=== PATIENT | male | born 1965 | race Caucasian/White ===

== ENCOUNTER 2018-12-20 16:51 | Emergency (ER) | payer OTHER ==
[2018-12-20 17:02] VITALS: BP 144/74
--- NOTE | 2018-12-20 18:12 | XRAY Report ---
Reason: dropped palate on R 1st toe. Procedure Date: 12/20/2018 Accession Number: [id number] / [id number] Procedure: XR - Toe(s) RT CPT Code: FULL RESULT: EXAM: RIGHT FIRST TOE RADIOGRAPHY EXAM DATE: 12/20/2018 05:49 PM. CLINICAL HISTORY: Dropped palate on R 1st toe. COMPARISON: None. TECHNIQUE: 3 views. FINDINGS: Bones: Probable nondisplaced fracture along the lateral aspect of the base of the distal phalanx of the great toe. No evidence of intra-articular extension. Joints: No subluxations. Mild degenerative changes at the first metatarsophalangeal joint. Soft Tissues: Normal. No soft tissue swelling. IMPRESSION: Probable nondisplaced fracture along the lateral aspect of the base of the distal pharynx of the great toe. RADIA
--- NOTE | 2018-12-20 18:59 | ED Physician Documentation ---
PD HPI LOWER EXT INJURY - Stated complaint Stated Complaint: TOE PX - Chief complaint Chief Complaint: Ext Problem - History obtained from History obtained from: Patient - History of Present Illness PD HPI LOW EXT INJURY LOCATION: Right, Toe Type of injury: Blunt / blow Timing - onset: How many days ago (2) Worsened by: Palpating, Other (Weightbearing.) Associated symptoms: Swelling, Discolored Similar symptoms before: Has not had sx before - Additional information Additional information: The patient is a 53-year-old male who stubbed his right great toe on a pallet 2 days ago. He presents now because of persistent pain and ecchymosis of the toe. His pain is worse with weightbearing. He denies any other injuries. Review of Systems Constitutional: denies: Fever Musculoskeletal: reports: Extremity pain (Right great toe.) Neurologic: denies: Focal weakness, Numbness PD PAST MEDICAL HISTORY - Past Medical History Past Medical History: Yes Cardiovascular: None Respiratory: None Neuro: None Endocrine/Autoimmune: None GI: None : None HEENT: Chronic vision loss Psych: None Musculoskeletal: None Derm: None - Past Surgical History Past Surgical History: Yes Ortho: Other - Allergies Allergies/Adverse Reactions: Allergies Allergy/AdvReac Type Severity Reaction Status Date / Time No Known Drug Allergies Allergy Verified 12/20/18 17:02 - Social History Does the pt smoke?: No Does the pt drink ETOH?: Yes ETOH Use: Wine Does the pt have substance abuse?: No - Immunizations Immunizations are current?: Yes - POLST Patient has POLST: No PD ED PE NORMAL - Vitals Vital signs reviewed: Yes (borderline systolic hypertension initially.) - General General: Alert and oriented X 3, Well developed/nourished - HEENT HEENT: Atraumatic - Respiratory Respiratory: No respiratory distress - Derm Derm: No rash - Extremities Extremities: No edema, No calf tenderness / cord, Other (There is swelling of the right great toe, with ecchymosis, and tenderness to palpation of the toe, particularly at the base of the distal phalanx. Distal neurovascular is intact. Integument is intact.) - Neuro Neuro: Alert and oriented X 3, No motor deficit, No sensory deficit Results - Vitals Vitals: Oxygen O2 Source Room air - Rads (name of study) Right great toe Radiology: Prelim report reviewed, EMP read contemporaneously, See rad report (Probable nondisplaced fracture along the lateral aspect of the base of the distal phalanx of the great toe.) PD MEDICAL DECISION MAKING - ED course Complexity details: reviewed results, considered differential, d/w patient ED course: The patient's presentation is most consistent with a nondisplaced small fracture at the lateral base of the distal phalanx of the right great toe, as seen on radiographic imaging. I discussed with him the expected course of injury, symptomatic treatment, as well as potentially worrisome signs or symptoms that should prompt reevaluation. Departure - Departure Disposition: 01 Home, Self Care Clinical Impression: Fracture of toe of right foot Qualifiers: Encounter type: initial encounter Toe: great toe Fracture type: closed Phalanx: distal Fracture alignment: nondisplaced Qualified Code(s): S92.424A - Nondisplaced fracture of distal phalanx of right great toe, initial encounter for closed fracture Condition: Stable Instructions: ED Fx Toe Closed Follow-Up: MARIEL Peterson [Provider Group] Comments: Keep your right foot elevated as much of the time as possible. Apply ice pack intermittently for the next few days. You can use Tylenol as needed for discomfort. Let pain be your guide to activity level. Follow-up with your primary physician within 2 weeks. Call to schedule an appointment. Return to the emergency department if you develop markedly increasing pain or swelling, or otherwise worsening symptoms. Discharge Date/Time: 12/20/18 19:20
== END 2018-12-20 19:20 | disposition home or self-care (01) ==
LOC: ED 16:51
DX: S92.424A Nondisplaced fracture of distal phalanx of right great toe, initial encounter for closed fracture (principal); W22.8XXA Striking against or struck by other objects, initial encounter
CPT/HCPCS: 73660; 99282; 99283

== ENCOUNTER 2022-06-10 12:02 | Emergency (ER) | payer OTHER ==
[2022-06-10 12:33] LABS: BASOPHILS # (AUTO) 0.1 10^3/uL (0.0-0.1); BASOPHILS % (AUTO) 0.8 %; EOSINOPHILS # (AUTO) 0.2 10^3/uL (0.0-0.7); EOSINOPHILS % (AUTO) 2.5 %; HCT - HEMATOCRIT 44.4 % (42.0-52.0); HGB - HEMOGLOBIN 14.7 g/dL (14.0-18.0); LYMPHOCYTES # (AUTO) 2.5 10^3/uL (1.5-3.5); LYMPHOCYTES % (AUTO) 31.1 %; MEAN CORPUSCULAR HEMOGLOBIN 32.2 pg (27.0-31.0); MEAN CORPUSCULAR HGB CONC 33.1 g/dL (32.0-36.0); MEAN CORPUSCULAR VOLUME 97.2 fL (80.0-94.0); MEAN PLATELET VOLUME 9.2 fL (7.4-11.4); MONOCYTES # (AUTO) 1.1 10^3/uL (0.0-1.0); MONOCYTES % (AUTO) 14.4 %; NEUTROPHILS % (AUTO) 50.9 %; PLT - PLATELET COUNT 378 10^3/uL (130-450); RED BLOOD COUNT 4.57 10^6/uL (4.70-6.10); RED CELL DISTRIBUTION WIDTH 12.5 % (12.0-15.0); WHITE BLOOD COUNT 7.9 x10^3/uL (4.8-10.8)
[2022-06-10 12:49] LABS: ALBUMIN 4.2 g/dL (3.2-5.5); ALBUMIN/GLOBULIN RATIO 1.1 (1.0-2.2); BILIRUBIN,TOTAL 0.4 mg/dL (0.2-1.0); CALCIUM 8.7 mg/dL (8.5-10.3); CREATININE 0.9 mg/dL (0.6-1.2)
--- NOTE | 2022-06-10 12:56 | XRAY Report ---
PROCEDURE: Chest 1 View X-Ray INDICATIONS: Chest pain TECHNIQUE: One view of the chest was acquired. COMPARISON: None. FINDINGS: Surgical changes and devices: None. Lungs and pleura: No pleural effusions or pneumothorax. Lungs are clear. Mediastinum: Mediastinal contours appear normal. Heart size is normal. Bones and chest wall: No suspicious bony lesions. Overlying soft tissues appear unremarkable. IMPRESSION: No acute radiographic abnormality. Reviewed by: Martin Mckeon MD on 06/10/2022 12:54 PM PDT Approved by: Martin Mckeon MD on 06/10/2022 12:54 PM PDT Station ID: [id number]
[2022-06-10] MEDS ORDERED: POTASSIUM CHLORIDE 20 MEQ TABLET PO STA (13:39)
--- NOTE | 2022-06-10 13:42 | ED Physician Documentation ---
History of Present Illness - Stated complaint Stated Complaint: Palpitations - Chief complaint Chief Complaint: Cardiac - History obtained from History obtained from: Patient - Additonal information Additional information: The patient comes to the emergency department chief complaint of palpitations on and off for the last 5 months and lightheadedness for the last 2 months. He states that he has already been following up with his primary doctor about this, has had a Holter monitor screening which has not had final results released yet, and is in the process of being referred to cardiology. He states the main reason he is here is because his smart watch told him he was in A-fib and he wants to make sure of whether or not that is actually the case. He states he gets a dull ache in his chest when he feels the palpitations, but that his heart rate usually is still less than 100. Sometimes, his watch tells him that he is in A-fib when it happens and that concerns him. The patient states he had COVID back in February and ever since then, has had persistent lightheadedness. He states is not really related to the episodes of palpitations but that he does notice it when he goes to stand up. Patient states he drinks plenty of water. Subsequent to the development of dizziness and palpitations, he was started on an antihypertensive, but states that has not changed his symptoms for the better or the worse. The patient has no prior diagnosis of any cardiac issues, including A-fib. No other complaints at this time. He states he is only fainted once, after a coughing spell. Usually just stands up for a while and lots the dizziness pass and then he is able to be up and around. PD PAST MEDICAL HISTORY - Past Medical History Cardiovascular: None Respiratory: None Neuro: None Endocrine/Autoimmune: None GI: None : None HEENT: Chronic vision loss Psych: None Musculoskeletal: None Derm: None - Past Surgical History Past Surgical History: Yes Ortho: Other - Present Medications Home Medications: Ambulatory Orders Medication Instructions Recorded Confirmed Potassium Chloride [K-Dur] 20 meq PO BIDWM #14 tablet 06/10/22 - Allergies Allergies/Adverse Reactions: Allergies Allergy/AdvReac Type Severity Reaction Status Date / Time No Known Drug Allergies Allergy Verified 06/10/22 12:13 - Social History Does the pt smoke?: No Does the pt drink ETOH?: Yes Does the pt have substance abuse?: No - Immunizations Immunizations are current?: Yes - POLST Patient has POLST: No PD ED PE NORMAL - Vitals Vital signs reviewed: Yes - General General: Alert and oriented X 3, No acute distress, Well developed/nourished - HEENT HEENT: Atraumatic, PERRL, EOMI, Moist mucous membranes - Neck Neck: Supple, no meningeal sign, Thyroid normal - Cardiac Cardiac: RRR, No murmur, Strong equal pulses - Respiratory Respiratory: No respiratory distress, Clear bilaterally - Abdomen Abdomen: Soft, Non tender, Non distended - Derm Derm: Normal color, Warm and dry, No rash - Extremities Extremities: No deformity, No edema - Neuro Neuro: Alert and oriented X 3 - Psych Psych: Normal mood, Normal affect Results - Vitals Vitals: Vital Signs - 24 hr 06/10/22 06/10/22 06/10/22 12:08 12:37 12:45 Temperature 36.1 C L Heart Rate 89 87 62 Respiratory 16 16 16 Rate Blood Pressure 149/99 H 140/94 H 158/79 H O2 Saturation 98 96 97 06/10/22 06/10/22 06/10/22 13:00 13:30 14:15 Temperature Heart Rate 90 94 85 Respiratory 16 16 17 Rate Blood Pressure 144/94 H 136/93 H 146/55 H O2 Saturation 97 97 97 06/10/22 06/10/22 14:30 15:10 Temperature Heart Rate 75 92 Respiratory 16 16 Rate Blood Pressure 135/89 H 139/96 H O2 Saturation 99 96 Oxygen O2 Source Room air - Labs Labs: Laboratory Tests 06/10/22 06/10/22 06/10/22 12:24 12:24 12:24 WBC 7.9 RBC 4.57 L Hgb 14.7 Hct 44.4 MCV 97.2 H MCH 32.2 H MCHC 33.1 RDW 12.5 Plt Count 378 MPV 9.2 Neut # (Auto) 4.0 Lymph # (Auto) 2.5 [place] # (Auto) 1.1 H Eos # (Auto) 0.2 Baso # (Auto) 0.1 Absolute Nucleated RBC 0.00 Nucleated RBC % 0.0 Sodium 136 Potassium 3.0 L Chloride 98 L Carbon Dioxide 27 Anion Gap 11.0 BUN 16 Creatinine 0.9 Estimated GFR (MDRD) 87 L Glucose 102 H Calcium 8.7 Total Bilirubin 0.4 AST 30 ALT 31 Alkaline Phosphatase 51 Troponin I High Sens 5.2 Total Protein 8.0 Albumin 4.2 Globulin 3.8 Albumin/Globulin Ratio 1.1 Lipase 28 06/10/22 13:55 WBC RBC Hgb Hct MCV MCH MCHC RDW Plt Count MPV Neut # (Auto) Lymph # (Auto) [place] # (Auto) Eos # (Auto) Baso # (Auto) Absolute Nucleated RBC Nucleated RBC % Sodium Potassium Chloride Carbon Dioxide Anion Gap BUN Creatinine Estimated GFR (MDRD) Glucose Calcium Total Bilirubin AST ALT Alkaline Phosphatase Troponin I High Sens 5.2 Total Protein Albumin Globulin Albumin/Globulin Ratio Lipase PD Medical Decision Making - ED course Complexity details: reviewed results, re-evaluated patient, considered differential, d/w patient ED course: The patient overall was well-appearing and was in normal sinus rhythm, both on the monitor and his EKG. He did not have any ectopy of any kind throughout his entire stay here. He reported feeling lightheaded but had a normal blood pressure and was able to sit up and stand up without difficulty. His laboratory studies were unremarkable except for a low potassium at 3.0. He was given an o ral replacement for this. We have discussed the need to take potassium replacements for the next week and the importance of following up with his primary doctor to learn his Holter results and determine whether any further intervention should be undertaken for his ongoing dizziness. I have also encouraged him to keep pursuing cardiology referral. We have discussed the usual indications for return. Departure - Departure Disposition: 01 Home, Self Care Clinical Impression: Palpitations, Near syncope, Hypokalemia Condition: Stable Instructions: ED Potassium Deficiency, ED Palpitations, ED Near Syncope Unkn Prescriptions: Potassium Chloride [K-Dur] 20 meq PO BIDWM #14 tablet Comments: Your EKG and monitor readings look fantastic and there is no evidence whatsoever of atrial fibrillation. You have been in a normal rhythm ever since you have been here in the ED. Additionally, your labs look good, including 2 sets of cardiac enzymes, other than mildly decreased potassium. It is not clear what is causing your episodes of palpitations and the separate episodes of lightheadedness/dizziness. It is clear that you are not in A-fib at this time, but it is possible that you have paroxysmal atrial fibrillation, meaning that you go in and out of the rhythm. The purpose of event monitoring is to catch such episodes and be able to identify what rhythm you are in during that time. If you did not have any symptoms during your initial wearing of the event monitor, it may be worth talking to your doctor about potentially wearing the monitor again and see if he can catch an actual episode and see what is going on. At this point in time, there is no further treatment to be done from the ED. You should continue to follow-up with your doctor to find out your final event monitoring results and you should also continue your plans to follow-up with cardiology. Since your potassium is low, you have been given a supplement here in the emergency department, and a prescription for the same for the next week has been electronically transmitted to [facility] in [place]. Please take this to be sure that there is no contribution of low potassium to the palpitations you are experiencing. Discharge Date/Time: 06/10/22 15:11
[2022-06-10 15:11] VITALS: BP 139/96
== END 2022-06-10 15:11 | disposition home or self-care (01) ==
LOC: ED 12:02
DX: R00.2 Palpitations (principal); E87.6 Hypokalemia; R55 Syncope and collapse
CPT/HCPCS: 36415; 71045; 80053; 83690; 84484; 85025; 93005; 99284; A9270

== ENCOUNTER 2022-07-23 12:22 | Outpatient (CLI) | payer OTHER | END 2022-07-23 12:23 | disposition home or self-care (01) | LOC: DI 12:22 | PROVIDERS: ATTEND Student in an Organized Health Care Education/Training Program | DX: R55 Syncope and collapse (principal); R07.89 Other chest pain; I10 Essential (primary) hypertension | CPT/HCPCS: 93306 ==

== ENCOUNTER 2023-07-11 07:00 | Outpatient (CLI) | payer OTHER ==
--- NOTE | 2023-07-13 09:45 | MRI Report ---
PROCEDURE: Cervical Spine WO INDICATIONS: MIGRAINE TECHNIQUE: Noncontrast sagittal T1 spin echo and T2 fast spin echo, sagittal STIR, foraminal oblique sagittal T2 fast spin echo, and axial gradient echo or T2 fast spin echo through the cervical spine. COMPARISON: None. FINDINGS: Image quality: Excellent. Alignment and Curvature: There is 2 mm of retrolisthesis of C4 on C5. 3 mm of retrolisthesis of C6 on C7 is present. Bone Marrow: Marrow demonstrates normal overall signal. Mild reactive signal within the endplates a djacent to the C5-C6, C6-C7, C7-T1, and T1-T2 intervertebral discs. Spinal Cord: Visualized spinal cord has normal size and signal. No cerebellar tonsillar herniation. Paraspinous Soft Tissues: No paravertebral masses. Prevertebral soft tissues are normal in thicknes s. C2-C3: Moderate disc desiccation. Mild diffuse disc bulge. Mild facet and uncovertebral hypertrophy bilaterally. Mild canal stenosis. Moderate bilateral foraminal stenosis. C3-C4: Moderate disc desiccation. Mild diffuse disc bulge. Mild facet and uncovertebral hypertrophy bilaterally. Mild canal stenosis. Moderate right and severe left foraminal stenosis. Mild left C4 ne rve root compression. C4-C5: Mild disc height loss and desiccation. Mild diffuse disc bulge. Mild facet and uncovertebral hypertrophy bilaterally. Moderate canal stenosis. Moderate to severe right and moderate left foramina l stenosis. Mild right C5 nerve root compression. C5-C6: Moderate disc height loss and desiccation. Mild diffuse disc bulge with superimposed broad-ba sed right posterolateral protrusion/osteophyte. Mild facet and uncovertebral hypertrophy bilaterally. Moderate to severe canal stenosis. Mild right cord flattening. Severe right and moderate left forami nal stenosis. Right C6 nerve root compression. C6-C7: Moderate disc height loss and desiccation. Mild diffuse disc bulge/osteophyte. Mild facet and uncovertebral hypertrophy bilaterally. Moderate canal stenosis. Moderate to severe bilateral foramin al stenosis with mild C7 nerve root compression bilaterally. C7-T1: Mild disc height loss and desiccation. Mild diffuse disc bulge. Mild facet and uncovertebral hypertrophy bilaterally. Moderate canal stenosis. Moderate right and moderate to severe left foramina l stenosis. Left C8 nerve root compression. IMPRESSION: 1. Multilevel degenerative disc and facet disease, as well as uncovertebral hypertrophy. 2. Multilevel canal stenoses, worst at C5-C6 where there is mild cord flattening. 3. Multilevel foraminal stenoses, worst at C3-C4, C4-C5, C5-C6, C6-C7, and C7-T1, where there is asso ciated intraforaminal nerve root compression. Recommend correlation with clinical symptoms to ascerta in relevance of these findings. Reviewed by: Gracie Lozano MD on 07/13/2023 9:44 AM PDT Approved by: Gracie Lozano MD on 07/13/2023 9:44 AM PDT Station ID: [id number]
== END 2023-07-11 07:01 | disposition home or self-care (01) ==
LOC: DI 07:00
PROVIDERS: ATTEND Nurse Practitioner Family
DX: G43.909 Migraine, unspecified, not intractable, without status migrainosus (principal); M48.02 Spinal stenosis, cervical region; M47.22 Other spondylosis with radiculopathy, cervical region; M47.23 Other spondylosis with radiculopathy, cervicothoracic region; M50.11 Cervical disc disorder with radiculopathy, high cervical region; M48.03 Spinal stenosis, cervicothoracic region